=== PATIENT | male | born 1995 | race Hispanic/Latino ===

== ENCOUNTER 2018-03-18 13:58 | Emergency (ER) | payer SELFPAY ==
[2018-03-18] MEDS ORDERED: Ketorolac Tromethamine 30 MG/ML VIAL ONE (16:34)
== END 2018-03-18 16:49 | disposition home or self-care (01) ==
LOC: ERS 13:58
DX: M54.42 Lumbago with sciatica, left side (principal); M54.41 Lumbago with sciatica, right side; L01.00 Impetigo, unspecified; L03.114 Cellulitis of left upper limb; L03.113 Cellulitis of right upper limb; L03.211 Cellulitis of face
CPT/HCPCS: 96372; J1885